=== PATIENT | female | born 1965 ===

== ENCOUNTER 2025-05-04 06:37 | Day surgery (SDC) | payer BC, SELFPAY | END 2025-05-04 09:15 | disposition home or self-care (01) | LOC: GI 06:37 | PROVIDERS: ATTENDING PHYSICIAN Internal Medicine Gastroenterology; FAMILY PHYSICIAN Student in an Organized Health Care Education/Training Program | DX: Z12.11 Encounter for screening for malignant neoplasm of colon (principal); K64.8 Other hemorrhoids; K62.89 Other specified diseases of anus and rectum | CPT/HCPCS: G0105 ==